=== PATIENT | female | born 1990 | race Caucasian/White ===

== ENCOUNTER 2017-07-13 15:45 | Observation (INO) | payer OTHER ==
[~2017-07-13] VITALS: Ht 160 cm; Wt 72.6 kg
[2017-07-13 16:16] VITALS: BP 106/62
[2017-07-13] MEDS ORDERED: PREN-546 PO (16:19)
[2017-07-13] MEDS ORDERED: FERR-252 PO (16:19)
== END 2017-07-13 20:51 | disposition home or self-care (01) ==
LOC: MLD 15:45
PROVIDERS: ADMIT Obstetrics & Gynecology; ATTEND Obstetrics & Gynecology
DX: Z34.92 Encounter for supervision of normal pregnancy, unspecified, second trimester (principal); Z3A.25 25 weeks gestation of pregnancy
CPT/HCPCS: 59025; 76700; 76805; 76810; 81000; G0378; Q0092

== ENCOUNTER 2017-07-15 03:55 | Observation (INO) | payer OTHER ==
[~2017-07-15] VITALS: Ht 160 cm; Wt 72.6 kg
[~2017-07-15 03:55] MED LIST: FERR-252 PO; PREN-546 PO
[2017-07-15] MEDS ORDERED: NACL 0.9% 500 ML IV SCH (04:40)
[2017-07-15] MEDS ORDERED: MORPHINE SULFATE 10 MG/ML SYR IVP PRN (04:40)
[2017-07-15 05:00] VITALS: BP 119/69
[2017-07-15] MEDS ORDERED: MORPHINE SULFATE 10 MG/ML SYR ONE (05:03)
[2017-07-15] MEDS ORDERED: PROMETHAZINE 25 MG/ML VIAL ONE (05:03)
[2017-07-15] MEDS ORDERED: PROMETHAZINE 25 MG/ML VIAL IVP PRN (05:15)
[2017-07-15] MEDS ORDERED: cefTRIAXone 1,000 MG VIAL ONE (05:25)
[2017-07-15] MEDS ORDERED: PREN-380 PO (06:42)
[2017-07-15] MEDS ORDERED: FERR-193 PO (06:42)
== END 2017-07-15 10:50 | disposition home or self-care (01) ==
LOC: MLD 03:55
PROVIDERS: ADMIT Obstetrics & Gynecology; ATTEND Obstetrics & Gynecology
DX: O26.899 Other specified pregnancy related conditions, unspecified trimester (principal); R10.9 Unspecified abdominal pain; Z3A.00 Weeks of gestation of pregnancy not specified
CPT/HCPCS: 76770; 96365; 96375; G0378; J0696; J2270; J2550; J7060; Q0092; J7030